=== PATIENT | female | born 1990 | race Native Hawaiian/Other Pacific Islander ===

== ENCOUNTER 2016-06-10 21:29 | Emergency (ER) | payer SELFPAY ==
[2016-06-10 21:31] VITALS: BP 125/83; PULSE 122; RESP 16; TEMP 98.7; O2SAT 97
== END 2016-06-10 21:50 | disposition left against medical advice (07) ==
LOC: NED 21:29
DX: R68.89 Other general symptoms and signs (principal)
CPT/HCPCS: 99281

== ENCOUNTER 2016-06-30 19:50 | Emergency (ER) | payer SELFPAY ==
[~2016-06-30] VITALS: Ht 180.3 cm; Wt 87.0 kg
[2016-06-30 19:52] VITALS: BP 141/83; PULSE 100; RESP 16; TEMP 98.1; O2SAT 98
== END 2016-06-30 23:50 | disposition left against medical advice (07) ==
LOC: NED 19:50
DX: R10.84 Generalized abdominal pain (principal)
CPT/HCPCS: 99281

== ENCOUNTER 2017-04-06 21:26 | Emergency (ER) | payer SELFPAY ==
[2017-04-06 21:29] VITALS: BP 153/94; PULSE 114; RESP 16; TEMP 100.1; O2SAT 97
--- NOTE | 2017-04-06 21:51 | PD ---
HPI Chief Complaint: Abdominal Pain Time Seen by Provider: 21:45 Travel History International Travel<30 days: No Contact w/Intl Traveler<30days: No Traveled to known affect area: No History of Present Illness HPI Well-developed well-nourished female presents to the emergency department by private transportation for evaluation of lower abdominal pain and pelvic pain 2 months. Symptoms worsened tonight with left lower quadrant pain. Patient's had no vaginal bleeding or vaginal discharge. Home test is been negative. Patient's last visit. Was partially 2-3 months ago. Patient was waiting to see her [employer] doctor because of increasing pain tonight decided to come to the emergency room. Patient is also noted some occasional intermittent drainage from her umbilicus. Patient denies any trauma redness or swelling to that side states is draining at this time. Pain at worst is 8/10 in intensity and currently 6/10 in intensity. PFSH Past Medical History Narrative Medical Endometriosis UTI; nursing notes reviewed Hx Anticoagulant Therapy: No Anxiety: Yes Cardiovascular Problems: No Chemotherapy: No Cerebrovascular Accident: No Diabetes: No Diminished Hearing: No Genitourinary: Yes (ENDOMETRIOSIS) Respiratory: No Immunizations Current: No ?: Unknown : 1 Miscarriage: 1 : 1 Dilation and Curettage (D&C): Yes Social History Alcohol Use: Yes (Every other weekend) Tobacco Use: No Substance Use: No Allergies-Medications (Allergen,Severity, Reaction): Coded Allergies: Sulfa (Sulfonamide Antibiotics) (Unverified Allergy, Severe, 12/06/16) HIVES Reported Meds & Prescriptions Reported Meds & Active Scripts Active No Active Prescriptions or Reported Medications Review of Systems Except as stated in HPI: all other systems reviewed are Neg Physical Exam Narrative GENERAL: Well developed well-nourished female in no acute distress no respiratory distress SKIN: Warm and dry. HEAD: Normocephalic. EYES: No scleral icterus. No injection or drainage. NECK: Supple, trachea midline. No JVD or lymphadenopathy. CARDIOVASCULAR: Regular rate and rhythm without murmurs, gallops, or rubs. RESPIRATORY: Breath sounds equal bilaterally. No accessory muscle use. GASTROINTESTINAL: Abdomen soft, obese, non-tender, nondistended. Umbilicus without redness induration or drainage or excoriation. Pelvic exam: Normal external exam no redness no induration no lesions; speculum exam scant white mucous cervical os closed no tissue no blood no clots; bimanual exam no adnexal mass or tenderness no cervical motion tenderness specimens collected. MUSCULOSKELETAL: No cyanosis, or edema. BACK: Nontender without obvious deformity. No CVA tenderness. Data Data Last Documented VS Vital Signs Date Time Temp Pulse Resp B/P (MAP) Pulse Ox O2 Delivery O2 Flow Rate FiO2 04/06/17 21:29 100.1 114 16 153/94 (113) 97 Room Air Orders Orders Complete Blood Count With Diff (04/06/17 21:45) Basic Metabolic Panel (Bmp) (04/06/17 21:45) Gc And Chlamydia Pcr (04/06/17 21:45) Wet Prep Profile (04/06/17 21:45) Urinalysis - C+S If Indicated (04/06/17 21:45) Ed Urine Pregnancytest Poc (04/06/17 21:45) Ketorolac Inj (Toradol Inj) (04/07/17 00:00) Ct Abd/Pel W/O Iv Contrast (04/06/17 ) Labs Laboratory Tests Test 04/06/17 21:50 04/06/17 21:55 04/06/17 22:40 Clue Cells (Wet Prep) NONE SEEN Vaginal Trichomonas (Wet Prep) NONE SEEN Vaginal Yeast (Wet Prep) NONE SEEN Chlamydia trachomatis DNA (PCR) NOT DETECTED Neisseria gonorrhoeae DNA (PCR) NOT DETECTED White Blood Count 9.2 TH/MM3 Red Blood Count 4.61 MIL/MM3 Hemoglobin 11.5 GM/DL Hematocrit 36.0 % Mean Corpuscular Volume 78.0 FL Mean Corpuscular Hemoglobin 24.9 PG Mean Corpuscular Hemoglobin Concent 31.9 % Red Cell Distribution Width 14.6 % Platelet Count 286 TH/MM3 Mean Platelet Volume 8.7 FL Neutrophils (%) (Auto) 56.0 % Lymphocytes (%) (Auto) 33.5 % Monocytes (%) (Auto) 7.5 % Eosinophils (%) (Auto) 2.3 % Basophils (%) (Auto) 0.7 % Neutrophils # (Auto) 5.1 TH/MM3 Lymphocytes # (Auto) 3.1 TH/MM3 Monocytes # (Auto) 0.7 TH/MM3 Eosinophils # (Auto) 0.2 TH/MM3 Basophils # (Auto) 0.1 TH/MM3 CBC Comment DIFF FINAL Differential Comment Blood Urea Nitrogen 12 MG/DL Creatinine 0.65 MG/DL Random Glucose 107 MG/DL Calcium Level 8.7 MG/DL Sodium Level 138 MEQ/L Potassium Level 3.7 MEQ/L Chloride Level 104 MEQ/L Carbon Dioxide Level 25.1 MEQ/L Anion Gap 9 MEQ/L Estimat Glomerular Filtration Rate 109 ML/MIN Urine Color YELLOW Urine Turbidity HAZY Urine pH 5.5 Urine Specific [place] 1.035 Urine Protein 30 mg/dL Urine Glucose (UA) NEG mg/dL Urine Ketones NEG mg/dL Urine Occult Blood NEG Urine Nitrite NEG Urine Bilirubin NEG Urine Urobilinogen LESS THAN 2.0 MG/DL Urine Leukocyte Esterase MOD Urine RBC 1 /hpf Urine WBC 3 /hpf Urine Squamous Epithelial Cells 4 /hpf Urine Bacteria RARE /hpf Urine Mucus MOD /lpf Microscopic Urinalysis Comment CULT NOT INDICATED MDM Medical Decision Making Medical Screen Exam Complete: Yes Emergency Medical Condition: Yes Medical Record Reviewed: Yes Interpretation(s) Last Impressions Abdomen/Pelvis CT 04/06/17 0000 Signed Impressions: Service Date/Time: March 23:59 - CONCLUSION: No acute findings in the abdomen and pelvis. Gustabo Kolb MD CBC & BMP Diagram 04/06/17 21:55 Calcium Level 8.7 Vital Signs Date Time Temp Pulse Resp B/P (MAP) Pulse Ox O2 Delivery O2 Flow Rate FiO2 04/06/17 21:29 100.1 114 16 153/94 (113) 97 Room Air Differential Diagnosis Menses, mittelschmerz, ruptured ovarian cyst, UTI, , unlikely ovarian torsion Narrative Course IV access obtained with flexion sent for resulting Patient resting comfortably urinalysis shows few bacteria culture not indicated By prep is negative CBC and metabolic panel values are grossly within normal range CT abdomen and pelvis ordered to rule out renal colic/obstructive uropathy nephrolithiasis/ureterolithiasis CT abdomen and pelvis is read as no acute abnormality abdomen or pelvis per reading radiologist next line patient is comfortable informed of lab results in stable for outpatient management Diagnosis Primary Impression: Abdominal pain Additional Impression: Irregular menstrual cycle Referrals: Retail Merchandiser call for appointment Patient Instructions: General Instructions Additional Instructions: Follow up with your employment services director Return to the emergency department for any concerns or change in condition Take as needed acetaminophen and/or ibuprofen per package instructions Scripts No Active Prescriptions or Reported Meds Disposition: 01 DISCHARGE HOME Condition: Stable Salter,Liliana H. MD Apr 06, 2017 21:51
[2017-04-06 22:09] LABS: AUTOMATED NEUTROPHIL # 5.1 TH/MM3 (1.8-7.7); BASOPHIL # 0.1 TH/MM3 (0-0.2); BASOPHIL % 0.7 % (0.0-2.0); EOSINOPHIL # 0.2 TH/MM3 (0-0.4); EOSINOPHIL % 2.3 % (0.0-4.0); HEMOGLOBIN 11.5 GM/DL (11.6-15.3); LYMPH % 33.5 % (9.0-44.0); LYMPHOCYTE # 3.1 TH/MM3 (1.0-4.8); MEAN CORPUSCULAR HEMOGLOBIN 24.9 PG (27.0-34.0); MEAN CORPUSCULAR HGB CONC 31.9 % (32.0-36.0); MEAN PLATELET VOLUME 8.7 FL (7.0-11.0); MONO % 7.5 % (0.0-8.0); MONOCYTE # 0.7 TH/MM3 (0-0.9); PLATELET COUNT 286 TH/MM3 (150-450); RED BLOOD COUNT 4.61 MIL/MM3 (4.00-5.30); RED CELL DISTRIBUTION WIDTH 14.6 % (11.6-17.2); WHITE BLOOD COUNT 9.2 TH/MM3 (4.0-11.0)
[2017-04-06 22:29] LABS: BICARBONATE 25.1 MEQ/L (21.0-32.0); CALCIUM 8.7 MG/DL (8.5-10.1); CREATININE 0.65 MG/DL (0.50-1.00)
[2017-04-06 23:19] LABS: BACTERIA, URINE RARE /hpf; BILIRUBIN, URINE NEG (NEG); BLOOD, URINE NEG (NEG); GLUCOSE,URINE NEG (NEG); KETONE, URINE NEG (NEG); MUCUS URINE MOD /lpf (OCC); NITRITE,URINE NEG (NEG); PH, URINE 5.5 (5.0-8.5); SQUAMOUS EPITHELIAL CELL URINE 4 /hpf (0-5); URINE COLOR YELLOW (YELLW/STRAW); URINE LEUKOCYTE ESTERASE MOD (NEG)
[2017-04-07] MEDS ORDERED: KETOROLAC TROMETHAMINE 30 MG/ML (IVP) VIAL IV PUSH ONE
--- NOTE | 2017-04-07 00:42 | RADRPT ---
EXAM DATE/TIME: 04/06/2017 23:59 [facility] COMPARISON: No previous studies available for comparison. INDICATIONS : Left lower quadrant pain. evaluate for renal stone ORAL CONTRAST: No oral contrast ingested. RADIATION DOSE: 17.86 CTDIvol (mGy) MEDICAL HISTORY : Endometriosis SURGICAL HISTORY : None. ENCOUNTER: Initial ACUITY: 2 weeks PAIN SCALE: 3/10 LOCATION: Left lower quadrant TECHNIQUE: Volumetric scanning of the abdomen and pelvis was performed. Using automated exposure control and ad justment of the mA and/or kV according to patient size, radiation dose was kept as low as reasonably achievable to obtain optimal diagnostic quality images. DICOM format image data is available electro nically for review and comparison. FINDINGS: LOWER LUNGS: The visualized lower lungs are clear. LIVER: Homogeneous density without lesion. There is no dilation of the biliary tree. No calcified gallston es. SPLEEN: Normal size without lesion. PANCREAS: Within normal limits. KIDNEYS: 1.7 cm rounded hypodensity in the lateral midpole of the right kidney likely representing a cyst. Kid neys otherwise within normal limits. No evidence of hydronephrosis. ADRENAL GLANDS: Within normal limits. VASCULAR: There is no aortic aneurysm. BOWEL/MESENTERY: No evidence of bowel dilatation. No free air or free fluid. Appendix within normal limits. ABDOMINAL WALL: Within normal limits. RETROPERITONEUM: There is no lymphadenopathy. BLADDER: No wall thickening or mass. REPRODUCTIVE: Within normal limits. INGUINAL: There is no lymphadenopathy or hernia. MUSCULOSKELETAL: Within normal limits for patient age. CONCLUSION: No acute findings in the abdomen and pelvis. Gustabo Kolb MD on April 07, 2017 at 0:33 Board Certified Radiologist. This report was verified electronically.
== END 2017-04-07 01:06 | disposition home or self-care (01) ==
LOC: NEPC 21:26
DX: N92.6 Irregular menstruation, unspecified (principal)
CPT/HCPCS: 74176; 80048; 81001; 84703; 85025; 87210; 87491; 87591; 99284